=== PATIENT | female | born 1990 | race African-American/Black ===

== ENCOUNTER 2016-08-12 17:34 | Emergency (ER) | payer OTHER ==
--- NOTE | 2016-08-12 17:56 | UC ---
Complaint Female HPI - HPI Summary HPI Summary: "gush of fluid from her vagina today about 3pm today". No menses x 1.5 months. LNMP 06/02/16. Before 06/02/16 saw her PCP for irregular menses. Has done multiple home PG tests and they have all been neg. Pt , and had an ectopic pg Jun 2015, was given "two shots" and got blood drawn after. Has hx chlamydia and gonorrhea in the past. Pt is not using any control, no condoms. Has been with the same boyfriend since age 15. Has some RLQ abd pain, "5", that started after the fluid came out today. The fluid was clear, watery, that went into her pants, "felt like when her water broke". Did not see any tissue. Was watching TV when it happened. Last intercourse a few days ago. - History Of Current Complaint Chief Complaint: UCAbdominalPain Stated Complaint: PERSONAL Time Seen by Provider: 08/12/16 17:55 Hx Obtained From: Patient Hx Last Menstrual Period: 06/02/16 ?: No Onset/Duration: Sudden Onset, Lasting Hours, Still Present Timing: Constant Severity Initially: Moderate Severity Currently: Moderate Pain Intensity: 5 Pain Scale Used: 0-10 Numeric Character: Sharp - feels like her ectopic Aggravating Factor(s): Nothing Alleviating Factor(s): Nothing Associated Signs And Symptoms: Positive: Back Pain - always, Vaginal Bleeding/ Discharge - "spotting this am, but no more", Vaginal Discharge - clear, Nausea. Negative: Fever Related Hx: - 2, Para - 1, Ectopic - 1, Prior STD Hx - GC and chlamydia - Allergies/Home Medications Allergies/Adverse Reactions: Allergies Allergy/AdvReac Type Severity Reaction Status Date / Time Shellfish Allergy Allergy Severe Difficulty Verified 08/12/16 17:40 Breathing/Wheezing Latex Allergy Intermediate Itching Verified 08/12/16 17:40 Penicillins Allergy See Comment Verified 12/13/15 10:26 Home Medications: Home Medications NK [No Home Medications Reported] 08/12/16 [History Confirmed 08/12/16] PMH/Surg Hx/FS Hx/Imm Hx Previously Healthy: No - ectopic Endocrine History Of: Denies: Diabetes, Thyroid Disease, Hyperthyroidism, Hypothyroidism, Dyslipidemia Cardiovascular History Of: Denies: Cardiac Disorders, Hypertension, Pacemaker/ICD, Myocardial Infarction , Congestive Heart Failure, Atrial Fibrillation, Deep Vein Thrombosis, Bleeding Disorders Respiratory History Of: Reports: Asthma - as child Denies: COPD, Bronchitis, Pneumonia, Pulmonary Embolism GI/ History Of: Denies: Gastroesophageal Reflux, Ulcer, Gastrointestinal Bleed, Gall Bladder Disease, Kidney Stones, Diverticulitis, Renal Disease, Urosepsis Neurological History Of: Denies: TIA, CVA, Dementia, Seizures, Migraine Psychological History Of: Reports: Depression - She is not on medications for this. Denies: Anxiety, Bipolar Disorder, Schizophrenia, Post Traumatic Stress Disorder Cancer History Of: Denies: Lung Cancer, Colorectal Cancer, Breast Cancer, Prostate Cancer, Cervical Cancer Other History Of: Negative For: HIV, Hepatitis B, Hepatitis C - Surgical History Surgical History: Yes Surgery Procedure, Year, and Place: scoliosis related 11/06 - Family History Known Family History: Positive: Hypertension, Diabetes - Social History Occupation: Employed Part-time - small business representative Lives: With Family Alcohol Use: Occasionally Substance Use Type: None Smoking Status (MU): Never Smoked Tobacco Household Exposure Type: Cigarettes - Immunization History Most Recent Influenza Vaccination: none Review of Systems Constitutional: Negative Skin: Negative Respiratory: Negative Cardiovascular: Negative Gastrointestinal: Abdominal Pain - RLQ, Other - stool is green Genitourinary: Other - "gush" of clear fluid from vagina All Other Systems Reviewed And Are Negative: Yes Physical Exam Triage Information Reviewed: Yes Appearance: Well-Nourished, Ill-Appearing, Pain Distress Vital Signs: Initial Vital Signs Temp 98.1 F 08/12/16 17:43 Pulse 110 08/12/16 17:43 Resp 16 08/12/16 17:43 BP 145/82 08/12/16 17:43 Pulse Ox 100 08/12/16 17:43 tachycardia noted Vital Signs Reviewed: Yes Eyes: Positive: Conjunctiva Clear ENT: Positive: Normal ENT inspection Neck: Positive: Supple Respiratory: Positive: Lungs clear, Normal breath sounds, No respiratory distress Cardiovascular: Positive: RRR, No Murmur, Pulses Normal, Brisk Capillary Refill Abdomen Description: Positive: No Organomegaly, Soft, McBurney's Point Tenderness, Other: - tender RLQ. Negative: Distended, Guarding, Peritoneal Signs Bowel Sounds: Positive: Present Musculoskeletal: Positive: Strength Intact, ROM Intact Neurological: Positive: Alert, Muscle Tone Normal Psychological Exam: Normal Skin Exam: Normal Complaint Female Dx - Course Course Of Treatment: Pt with hx ectopic, "gush" of fluid and RLQ abd pain. HCG is neg here, but with RLQ pain will have pt go to [facility] for further eval. Pt agrees. Will go by private car. - Differential Dx/Diagnosis Differential Diagnosis/HQI/PQRI: Appendicitis, Ectopic, Sexually Transmitted Disease, Tubo-ovarian Abscess Provider Diagnoses: RLQ abd pain. vaginal discharge - Physician Notifications Discussed Patient Care With: Viri Pereira NP accepts pt. 18:45 Discharge - Discharge Plan Condition: Stable Disposition: AGAINST MEDICAL ADVICE Discharge Disposition Comment: private car to [facility]
[2016-08-12 18:51] VITALS: BP 145/86
== END 2016-08-12 18:50 | disposition left against medical advice (07) ==
LOC: UCCORT 17:34
DX: R10.31 Right lower quadrant pain (principal); N89.8 Other specified noninflammatory disorders of vagina; Z88.0 Allergy status to penicillin; Z77.22 Contact with and (suspected) exposure to environmental tobacco smoke (acute) (chronic)
CPT/HCPCS: 81003; 84702; 99213; G0463

== ENCOUNTER 2016-08-29 10:26 | Emergency (ER) | payer OTHER ==
[2016-08-29 11:49] VITALS: BP 136/82
--- NOTE | 2016-08-29 12:04 | UC ---
Complaint Female HPI - HPI Summary HPI Summary: 1. vaginal itchiness, redness, no discharge, hx of frequent yeast infection 2. heart burn x months, mild epigastric pain, reflux, no n/v , has been taking tumbs with no improvement - History Of Current Complaint Chief Complaint: UCGeneralIllness Stated Complaint: PERSONAL Time Seen by Provider: 08/29/16 11:50 Hx Obtained From: Patient Hx Last Menstrual Period: 07/31/16 Onset/Duration: Gradual Onset, Lasting Days - 4, Still Present Timing: Constant Severity Initially: Moderate Severity Currently: Moderate Character: Burning Aggravating Factor(s): Nothing Associated Signs And Symptoms: Negative: Fever, Back Pain, Vaginal Bleeding/ Discharge, Vaginal Discharge, Nausea, Vomiting(# Of Episodes =), Genital Swelling, Genital Blisters, Retained Foregin Body (Specify) - Allergies/Home Medications Allergies/Adverse Reactions: Allergies Allergy/AdvReac Type Severity Reaction Status Date / Time Shellfish Allergy Allergy Severe Difficulty Verified 08/29/16 11:49 Breathing/Wheezing Latex Allergy Intermediate Itching Verified 08/29/16 11:49 Penicillins Allergy See Comment Verified 08/29/16 11:49 PMH/Surg Hx/FS Hx/Imm Hx Endocrine History Of: Denies: Diabetes, Thyroid Disease, Hyperthyroidism, Hypothyroidism, Dyslipidemia Cardiovascular History Of: Denies: Cardiac Disorders, Hypertension, Pacemaker/ICD, Myocardial Infarction , Congestive Heart Failure, Atrial Fibrillation, Deep Vein Thrombosis, Bleeding Disorders Respiratory History Of: Reports: Asthma - as child Denies: COPD, Bronchitis, Pneumonia, Pulmonary Embolism GI/ History Of: Denies: Gastroesophageal Reflux, Ulcer, Gastrointestinal Bleed, Gall Bladder Disease, Kidney Stones, Diverticulitis, Renal Disease, Urosepsis Neurological History Of: Denies: TIA, CVA, Dementia, Seizures, Migraine Psychological History Of: Reports: Depression - She is not on medications for this. Denies: Anxiety, Bipolar Disorder, Schizophrenia, Post Traumatic Stress Disorder Cancer History Of: Denies: Lung Cancer, Colorectal Cancer, Breast Cancer, Prostate Cancer, Cervical Cancer Other History Of: Negative For: HIV, Hepatitis B, Hepatitis C - Surgical History Surgical History: Yes Surgery Procedure, Year, and Place: scoliosis related 11/06 - Family History Known Family History: Positive: None, Hypertension, Diabetes - Social History Alcohol Use: Occasionally Substance Use Type: None Smoking Status (MU): Never Smoked Tobacco Household Exposure Type: Cigarettes - Immunization History Most Recent Influenza Vaccination: none Review of Systems Constitutional: Negative Skin: Negative Eyes: Negative ENT: Negative Respiratory: Negative Cardiovascular: Negative Gastrointestinal: Other - GERD Genitourinary: Other - VAGINAL ITCH Motor: Negative All Other Systems Reviewed And Are Negative: Yes Physical Exam Triage Information Reviewed: Yes Appearance: Well-Appearing, No Pain Distress, Well-Nourished Vital Signs: Initial Vital Signs Temp 97.7 F 08/29/16 11:39 Pulse 81 08/29/16 11:39 Resp 14 08/29/16 11:39 BP 136/82 08/29/16 11:39 Pulse Ox 100 08/29/16 11:39 Vital Signs Reviewed: Yes Eye Exam: Normal Eyes: Positive: Conjunctiva Clear ENT: Positive: Normal ENT inspection, Hearing grossly normal, Pharynx normal Neck: Positive: Supple, Nontender, No Lymphadenopathy Respiratory: Positive: Chest non-tender, Lungs clear, Normal breath sounds Cardiovascular: Positive: RRR, No Murmur, Pulses Normal Abdominal Exam: Normal Abdomen Description: Positive: Nontender, Soft, Other: - VAGINAL EXAM WAS DEFFERED. Negative: CVA Tenderness (R), CVA Tenderness (L), Distended, Guarding Bowel Sounds: Positive: Present Skin Exam: Normal Complaint Female Dx - Differential Dx/Diagnosis Provider Diagnoses: YEAST VAGINITIS. GERD Discharge - Discharge Plan Condition: Stable Disposition: HOME Prescriptions: Fluconazole [Diflucan 150 MG (NF)] 150 mg PO ONCE #2 tab Omeprazole 40 mg PO DAILY #30 cap Patient Education Materials: Gastroesophageal Reflux in Children (ED), Vulvovaginal Candidiasis (ED) Referrals: Hawa Garcia MD [Primary Care Provider] - 7 Days
== END 2016-08-29 12:06 | disposition home or self-care (01) ==
LOC: UCCORT 10:26
DX: B37.3 Candidiasis of vulva and vagina (principal); K21.9 Gastro-esophageal reflux disease without esophagitis; Z88.0 Allergy status to penicillin; Z77.22 Contact with and (suspected) exposure to environmental tobacco smoke (acute) (chronic)
CPT/HCPCS: 99212; G0463

== ENCOUNTER 2016-10-02 09:17 | Emergency (ER) | payer OTHER ==
[2016-10-02 09:36] VITALS: BP 147/95
[2016-10-02] MEDS ORDERED: cefTRIAXone VIAL(*) 250 MG VIAL IM ONE (10:42)
[2016-10-02] MEDS ORDERED: Azithromycin TAB* 250 MG PO ONE (10:43)
--- NOTE | 2016-10-02 10:44 | UC ---
Complaint Female HPI - HPI Summary HPI Summary: 26 female presents with complaints of having white thick discharge without odor x1 day and then dryness over the past week. States she feels like something is wrong with genitalia but can't specify exact symptoms. Admits to STD history 2 months ago. Has numerous visits with complaints. Has had unprotected sex with new partner, within the last month unknown STD history. Is worried about STDs because of this and would like to be tested. Denies blood, fever/chills, abdominal pain and external genitalia symptoms. Difficult history due to changing stories and unknown specific timelines. LMP was September 13. Denies and urinary symptoms. - History Of Current Complaint Chief Complaint: UCGU Stated Complaint: PERSONAL Time Seen by Provider: 10/02/16 09:43 Hx Obtained From: Patient Hx Last Menstrual Period: 09/13/16 ?: No Onset/Duration: Sudden Onset, Lasting Weeks, Still Present Timing: Constant Severity Initially: Mild Severity Currently: Moderate Pain Intensity: 0 Pain Scale Used: 0-10 Numeric Character: Not Applicable Aggravating Factor(s): Nothing Alleviating Factor(s): Nothing Associated Signs And Symptoms: Positive: Vaginal Discharge. Negative: Nausea, Vomiting(# Of Episodes =), Genital Swelling, Genital Blisters Related Hx: - 2, Para - 1, Prior STD Hx - Risk Factors Ectopic Risk Factor: Negative - Allergies/Home Medications Allergies/Adverse Reactions: Allergies Allergy/AdvReac Type Severity Reaction Status Date / Time Shellfish Allergy Allergy Severe Difficulty Verified 08/29/16 11:49 Breathing/Wheezing Latex Allergy Intermediate Itching Verified 08/29/16 11:49 Penicillins AdvReac See Comment Verified 10/02/16 09:37 Home Medications: Home Medications Ferrous Fumarate [Iron] 18 mg PO DAILY 10/02/16 [History Confirmed 10/02/16] Performix 1 tab PO DAILY 10/02/16 [History] PMH/Surg Hx/FS Hx/Imm Hx Endocrine History Of: Denies: Diabetes, Thyroid Disease, Hyperthyroidism, Hypothyroidism, Dyslipidemia Cardiovascular History Of: Denies: Cardiac Disorders, Hypertension, Pacemaker/ICD, Myocardial Infarction , Congestive Heart Failure, Atrial Fibrillation, Deep Vein Thrombosis, Bleeding Disorders Respiratory History Of: Reports: Asthma - as child Denies: COPD, Bronchitis, Pneumonia, Pulmonary Embolism GI/ History Of: Denies: Gastroesophageal Reflux, Ulcer, Gastrointestinal Bleed, Gall Bladder Disease, Kidney Stones, Diverticulitis, Renal Disease, Urosepsis Neurological History Of: Denies: TIA, CVA, Dementia, Seizures, Migraine Psychological History Of: Reports: Depression - She is not on medications for this. Denies: Anxiety, Bipolar Disorder, Schizophrenia, Post Traumatic Stress Disorder Cancer History Of: Denies: Lung Cancer, Colorectal Cancer, Breast Cancer, Prostate Cancer, Cervical Cancer Other History Of: Negative For: HIV, Hepatitis B, Hepatitis C - Surgical History Surgical History: Yes Surgery Procedure, Year, and Place: scoliosis related 11/06 - Family History Known Family History: Positive: None, Hypertension, Diabetes - Social History Alcohol Use: Occasionally Substance Use Type: Marijuana Substance Use Comment - Amount & Last Used: occ. user, last time was last week Smoking Status (MU): Never Smoked Tobacco Household Exposure Type: Cigarettes - Immunization History Most Recent Influenza Vaccination: none Vaccination Up to Date: Yes Review of Systems Constitutional: Negative Skin: Negative Respiratory: Negative Cardiovascular: Negative Gastrointestinal: Negative Genitourinary: Other - vaginal discharge and dryness Musculoskeletal: Negative Psychological: Anxious All Other Systems Reviewed And Are Negative: Yes Physical Exam Triage Information Reviewed: Yes Appearance: Well-Appearing - appeared anxious when talking, got more comfortable as examination went on, No Pain Distress, Well-Nourished, Obese Vital Signs: Initial Vital Signs Temp 98.2 F 10/02/16 09:30 Pulse 90 10/02/16 09:30 Resp 14 10/02/16 09:30 BP 147/95 10/02/16 09:30 Pulse Ox 100 10/02/16 09:30 elevated BP noted, patient advised to follow up with primary care provider for re-check. patient was nervous Vital Signs Reviewed: Yes Eyes: Positive: Conjunctiva Clear ENT: Positive: Normal ENT inspection, Hearing grossly normal Neck: Positive: Supple, Nontender, No Lymphadenopathy Respiratory: Positive: Chest non-tender, Lungs clear, Normal breath sounds, No respiratory distress, No accessory muscle use Cardiovascular: Positive: RRR, No Murmur, Pulses Normal Abdomen Description: Positive: Nontender, No Organomegaly, Soft. Negative: Bruit, CVA Tenderness (R), CVA Tenderness (L), Distended, Guarding, Hernia @, McBurney's Point Tenderness, Peritoneal Signs, Pulsatile Mass Bowel Sounds: Positive: Present Musculoskeletal: Positive: Strength Intact, ROM Intact Neurological: Positive: Alert Skin Exam: Normal UC Physical Exam Vital Signs On Initial Exam: Initial Vitals Temp Pulse Resp BP Pulse Ox 98.2 F 90 14 147/95 100 10/02/16 09:30 10/02/16 09:30 10/02/16 09:30 10/02/16 09:30 10/02/16 09:30 - Genitalia Exam Female Genitourinary: Normal External Exam, Genitalia without Lesions/Masses, Cervix Discharge - yellow-white thick, purulent does not appear like anca, odor resembling perspiration, Other - cervix without cerivcal motion tenderes, no adnexa or uterus tenderness, no blood Complaint Female Dx - Course Course Of Treatment: pelvic exam preformed. STD, BV and anca cultures obtained. Due to HPI complaints, PE findings, positive STD hx and new sexual partner patient agreed to have STD treatment at this time. Flor and Celine. Will wait for culture results if treatment needs to be changed or added. Refrain from sexual activity. Patient thouroughly interviewed and educated on STDs and protection. Took a while to have patient feel comfortable to explain the reason she was here. Aware of worsening signs and symptoms to watch out for. Follow up and make appointment with OBGYN and PCP. - Differential Dx/Diagnosis Differential Diagnosis/HQI/PQRI: Pelvic Inflammatory Disease, , Sexually Transmitted Disease, Urinary Tract Infection, Other - BV, anca Provider Diagnoses: treatment STD, vaginal discharge - Physician Notifications Discussed Patient Care With: Dr Stevenson, agreed to treat patient for STDs at this time. Discharge - Discharge Plan Condition: Good Disposition: HOME Patient Education Materials: Sexually Transmitted Diseases (ED), Bacterial Vaginosis (ED) Referrals: Holly Delaney MD [Primary Care Provider] - Brook Garza MD [Medical Doctor] - Additional Instructions: You will hear test results once received via telephone. If additional treatment is needed it will be done at this time. If you develop any new or worsening symptoms please return. Follow up with OBGYN and call and make an appointment to become established. Drink plenty of fluids and maintain good hygiene. Refrain from sexual activity until symptoms have been treated and improved. Follow up with PCP is also recommended.
[2016-10-02] MEDS ORDERED: Lidocaine 1% MPF* 2 ML VIAL ONE (10:55)
--- NOTE | 2016-10-04 09:20 | UC ---
Progress - Progress Note Progress Note: Carli called in for anca.
== END 2016-10-02 11:11 | disposition home or self-care (01) ==
LOC: UCCORT 09:17
DX: B37.3 Candidiasis of vulva and vagina (principal); Z11.3 Encounter for screening for infections with a predominantly sexual mode of transmission; Z32.02 Encounter for pregnancy test, result negative; J45.909 Unspecified asthma, uncomplicated; F32.9 Major depressive disorder, single episode, unspecified; E66.9 Obesity, unspecified; Z88.0 Allergy status to penicillin; Z91.040 Latex allergy status; Z91.013 Allergy to seafood; F12.90 Cannabis use, unspecified, uncomplicated; Z77.22 Contact with and (suspected) exposure to environmental tobacco smoke (acute) (chronic)
CPT/HCPCS: 81003; 84702; 87086; 87480; 87491; 87510; 87591; 87661; 96372; 99212; A9270-GY; G0463; J0696

== ENCOUNTER 2016-12-30 16:45 | Emergency (ER) | payer OTHER ==
--- NOTE | 2016-12-30 17:06 | UC ---
Complaint Female HPI - HPI Summary HPI Summary: 26 y/o female presents to the urgent care c/o yellowish vaginal discharge for the past 2 weeks after her LMP 12/11/16. Pt reports she has HX of GC/Ch which was treated this year, she still with the same partner. She is using the Nuvaring. Pt frequency on urination w/ any burning. Pt denies pelvic pain, fever, back pain, N/V/D, SOB, chest pian. Pt has not other complains. - History Of Current Complaint Stated Complaint: PERSONAL Time Seen by Provider: 12/30/16 17:01 Hx Obtained From: Patient Hx Last Menstrual Period: 12/11/2016 ?: No Onset/Duration: Gradual Onset, Lasting Days, Still Present Timing: Constant Severity Initially: Mild Severity Currently: Moderate Pain Intensity: 0 Pain Scale Used: 0-10 Numeric Character: Not Applicable Aggravating Factor(s): Urination Associated Signs And Symptoms: Positive: Vaginal Discharge. Negative: Fever, Back Pain, Genital Swelling, Genital Blisters - Risk Factors Ectopic Risk Factor: Negative Ovarian Torsion Risk Factor: Negative - Allergies/Home Medications Allergies/Adverse Reactions: Allergies Allergy/AdvReac Type Severity Reaction Status Date / Time Shellfish Allergy Allergy Severe Difficulty Verified 12/30/16 17:13 Breathing/Wheezing Latex Allergy Intermediate Itching Verified 12/30/16 17:13 Penicillins AdvReac See Comment Verified 12/30/16 17:13 PMH/Surg Hx/FS Hx/Imm Hx Previously Healthy: Yes Respiratory History: Asthma GI/ History: Gastroesophageal Reflux Other History Of: Negative For: HIV, Hepatitis B, Hepatitis C - Surgical History Surgical History: Yes Surgery Procedure, Year, and Place: scoliosis related 11/06 - Family History Known Family History: Positive: None, Hypertension, Diabetes - Social History Occupation: Employed Full-time Lives: With Family Alcohol Use: Occasionally Substance Use Type: Marijuana Substance Use Comment - Amount & Last Used: occ. user, last time was last week Smoking Status (MU): Never Smoked Tobacco Household Exposure Type: Cigarettes - Immunization History Most Recent Influenza Vaccination: none Vaccination Up to Date: Yes Review of Systems Constitutional: Negative Skin: Negative Eyes: Negative ENT: Negative Respiratory: Negative Cardiovascular: Negative Gastrointestinal: Negative Genitourinary: Frequency, Other - yellowish vaginal discharge Motor: Negative Neurovascular: Negative Musculoskeletal: Negative Neurological: Negative Psychological: Negative All Other Systems Reviewed And Are Negative: Yes Physical Exam Triage Information Reviewed: Yes Appearance: Well-Appearing, No Pain Distress, Well-Nourished, Obese Vital Signs Reviewed: Yes Eye Exam: Normal Eyes: Positive: Conjunctiva Clear - PERRLA, EOMI, fundi grossly normal. ENT Exam: Normal ENT: Positive: Normal ENT inspection, Hearing grossly normal, Pharynx normal, TMs normal Dental Exam: Normal Neck exam: Normal Neck: Positive: Supple, Nontender, No Lymphadenopathy Respiratory Exam: Normal Respiratory: Positive: Chest non-tender, Lungs clear, Normal breath sounds, No respiratory distress Cardiovascular Exam: Normal Cardiovascular: Positive: RRR, No Murmur, Pulses Normal Abdominal Exam: Normal Abdomen Description: Positive: Nontender, No Organomegaly, Soft, Other: - Pelvic : I was assisted by Nurse Sherri. External genitalia within normal limits. There is no lesions there is no masses noted. Speculum exam: The vaginal dick are within normal limits w/ cottage cheese grayish vaginal discharge, no the lesions or rashes. The cervix is closed with mild erythema aoround 10 o'clock. No masses. There is no CMT's, and no adnexal masses. Sample sent Lab for G/C , trichomonas and affirm panel. Rectal: No lesions, no hemorrhoids observed.. Negative: CVA Tenderness (R), CVA Tenderness (L) Bowel Sounds: Positive: Present Musculoskeletal Exam: Normal Neurological Exam: Normal Psychological Exam: Normal Skin Exam: Normal Complaint Female Dx - Course Course Of Treatment: 26 y/o female presents to the urgent care c/o yellowish vaginal discharge for the past 2 weeks after her LMP 12/11/16. Pt reports she has HX of GC/Ch which was treated this year, she still with the same partner. She is using the Nuvaring. Pt frequency on urination w/ any burning. Pt denies pelvic pain, fever, back pain, N/V/D, SOB, chest pian. Hx obtained. PE abnormal findings:Pelvic: I was assisted by Nurse Polanco. External genitalia within normal limits. There is no lesions there is no masses noted. Speculum exam: The vaginal dick are within normal limits w/ cottage cheese grayish vaginal discharge, no the lesions or rashes. The cervix is closed with mild erythema aoround 10 o'clock. No masses. There is no CMT's, and no adnexal masses. Sample sent Lab for G/C, trichomonas and affirm panel. Rectal: No lesions, no hemorrhoids observed. Most likely a vulvovaginal candidiasis. However I will also treated for BV since pt reports a fishy odor at home. Pt strongly advised to f/u with [facility] since cervical os w/ erythematous lesion for a PAP. Pt Rx Fluconazol and Metronidazol vaginal applicator. BP: 149/83 elevated today and when compared w/ previous visit her BP has been elevated. Pt advised to decrease salt intake and monitor BP and f/u with PCP for further management. Pt undertood and agreed. - Differential Dx/Diagnosis Differential Diagnosis/HQI/PQRI: Cervicitis, Pelvic Inflammatory Disease, Sexually Transmitted Disease, Urinary Tract Infection Provider Diagnoses: 1- Bacterial Vaginosis. 2- Vulvovaginal candidiasis. 3- Elevated blood pressure w/ Hx or HTN Discharge - Discharge Plan Condition: Stable Disposition: HOME Prescriptions: Fluconazole 150 MG (NF) [Diflucan 150 mg (NF)] 150 mg PO ONCE #1 tab metroNIDAZOLE VAGINAL 0.75%* 1 applic VAGINAL BEDTIME #1 magy Patient Education Materials: Bacterial Vaginosis (ED), Vulvovaginal Candidiasis (ED), Low Sodium Diet (ED) Referrals: Holly Delaney MD [Primary Care Provider] - 1 Week Additional Instructions: 1-Please f/u with [facility] for a PAP as soon as possible. Please take medications as directed. Specimen were sent to lab, if anything abnormal you will receive a call from us for further treatment. 2- Your BP is elevated today, please monitor your blood pressure and decrease salt in your diet. F/u w/ your PCP for further evaluation and treatment in your BP.
[2016-12-30 17:13] VITALS: BP 149/83
== END 2016-12-30 17:57 | disposition home or self-care (01) ==
LOC: UCCORT 16:45
DX: N76.0 Acute vaginitis (principal); J45.909 Unspecified asthma, uncomplicated; K21.9 Gastro-esophageal reflux disease without esophagitis; F17.210 Nicotine dependence, cigarettes, uncomplicated; B37.3 Candidiasis of vulva and vagina; R03.0 Elevated blood-pressure reading, without diagnosis of hypertension; Z91.040 Latex allergy status; Z88.0 Allergy status to penicillin; Z91.013 Allergy to seafood
CPT/HCPCS: 81003; 87480; 87491; 87510; 87591; 87661; 99212; G0463

== ENCOUNTER 2017-06-28 12:42 | Emergency (ER) | payer OTHER | END 2017-06-28 16:42 | disposition left against medical advice (07) | LOC: UCCORT 12:42 | DX: R10.9 Unspecified abdominal pain (principal); Z53.21 Procedure and treatment not carried out due to patient leaving prior to being seen by health care provider ==

== ENCOUNTER 2017-06-29 08:36 | Emergency (ER) | payer OTHER ==
[2017-06-29 08:52] VITALS: BP 122/76
--- NOTE | 2017-06-29 10:19 | UC ---
Throat Pain/Nasal Mateo HPI - HPI Summary HPI Summary: Pt presents with c/o ST X 3 days. - History of Current Complaint Chief Complaint: UCGeneralIllness Stated Complaint: ST/DIZZY/ACHES Time Seen by Provider: 06/29/17 10:12 Hx Obtained From: Patient Hx Last Menstrual Period: 06/13/17 ?: No Onset/Duration: Sudden Onset Severity: Moderate Pain Intensity: 10 Cough: None Associated Signs & Symptoms: Positive: Dysphagia - Epiglottits Risk Factors Epiglottis Risk Factors: Sudden Onset - Allergies/Home Medications Allergies/Adverse Reactions: Allergies Allergy/AdvReac Type Severity Reaction Status Date / Time latex Allergy Itching Verified 06/29/17 08:46 shellfish derived Allergy Difficulty Verified 06/29/17 08:46 Breathing/Wheezing Penicillins AdvReac See Comment Verified 06/29/17 08:46 PMH/Surg Hx/FS Hx/Imm Hx Previously Healthy: Yes Other History Of: Negative For: HIV, Hepatitis B, Hepatitis C - Surgical History Surgical History: Yes Surgery Procedure, Year, and Place: scoliosis related 11/06 - Family History Known Family History: Positive: None, Hypertension, Diabetes - Social History Occupation: Employed Full-time Lives: With Family Alcohol Use: Rare Substance Use Type: None Substance Use Comment - Amount & Last Used: occ. user, last time was last week Smoking Status (MU): Never Smoked Tobacco Have You Smoked in the Last Year: No Household Exposure Type: Cigarettes - Immunization History Most Recent Influenza Vaccination: none Vaccination Up to Date: Yes Review of Systems Constitutional: Fever, Chills Skin: Negative Eyes: Negative ENT: Sore Throat Respiratory: Negative Cardiovascular: Negative Gastrointestinal: Negative Genitourinary: Negative Motor: Negative Neurovascular: Negative Musculoskeletal: Myalgia Neurological: Negative Psychological: Negative Is Patient Immunocompromised?: No All Other Systems Reviewed And Are Negative: Yes Physical Exam Triage Information Reviewed: Yes Appearance: Well-Appearing Vital Signs: Initial Vital Signs Temp 98.2 F 06/29/17 08:45 Pulse 94 06/29/17 08:45 Resp 16 06/29/17 08:45 BP 122/76 06/29/17 08:45 Pulse Ox 100 06/29/17 08:45 Vital Signs Reviewed: Yes Eye Exam: Normal ENT Exam: Other ENT: Positive: Tonsillar swelling, Other - tongue ring Dental Exam: Normal Neck exam: Other Neck: Positive: Tenderness @ - left cervical Respiratory Exam: Normal Cardiovascular Exam: Normal Musculoskeletal Exam: Normal Neurological Exam: Normal Psychological Exam: Normal Skin Exam: Normal Diagnostics - Laboratory Diagnostic Studies Completed/Ordered: Positive rapid strep Throat Pain/Nasal Course/Dx - Differential Dx/Diagnosis Differential Diagnosis/HQI/PQRI: Pharyngitis, Tonsillitis Provider Diagnoses: strep throat Discharge - Discharge Plan Condition: Stable Disposition: HOME Prescriptions: Azithromycin 500 mg PO DAILY #5 tab Patient Education Materials: Strep Throat (ED) Forms: *Work Release Referrals: [facility] [Outside] Non Staff,Doctor [Primary Care Provider] -
== END 2017-06-29 10:27 | disposition home or self-care (01) ==
LOC: UCCORT 08:36
DX: J02.0 Streptococcal pharyngitis (principal); Z77.22 Contact with and (suspected) exposure to environmental tobacco smoke (acute) (chronic)
CPT/HCPCS: 87651; 99212; G0463

== ENCOUNTER 2018-08-27 17:29 | Emergency (ER) | payer BC, MEDICAID, OTHER ==
[2018-08-27 17:53] VITALS: BP 145/87
--- NOTE | 2018-08-27 18:58 | UC ---
UC General HPI - HPI Summary HPI Summary: PT IS C/O A 2 WEEK HX OF WORSENING SINUS PAIN, CONGESTION AND GREEN DRAINAGE. ALSO C/O A SORE THROAT AND COUGH WHICH MAY BE POST NASAL DRIP RELATED. NO CP OR SOB. NO HX ASTHMA. - History of Current Complaint Chief Complaint: UCGeneralIllness Stated Complaint: ST,COUGH,CONGESTION Time Seen by Provider: 08/27/18 18:52 Hx Obtained From: Patient Hx Last Menstrual Period: 08/17/18 Onset/Duration: Gradual Onset Timing: Constant Pain Intensity: 3 - Allergy/Home Medications Allergies/Adverse Reactions: Allergies Allergy/AdvReac Type Severity Reaction Status Date / Time latex Allergy Itching Verified 08/27/18 17:53 shellfish derived Allergy Difficulty Verified 08/27/18 17:53 Breathing/Wheezing Penicillins AdvReac See Comment Verified 08/27/18 17:53 PMH/Surg Hx/FS Hx/Imm Hx Previously Healthy: Yes Other History Of: Negative For: HIV, Hepatitis B, Hepatitis C - Surgical History Surgical History: Yes Surgery Procedure, Year, and Place: scoliosis related 11/06 - Family History Known Family History: Positive: None, Hypertension, Diabetes - Social History Occupation: Employed Full-time Alcohol Use: Rare Substance Use Type: None Substance Use Comment - Amount & Last Used: occ. user, last time was last week Smoking Status (MU): Never Smoked Tobacco Have You Smoked in the Last Year: No Household Exposure Type: Cigarettes - Immunization History Most Recent Influenza Vaccination: none Vaccination Up to Date: Yes Review of Systems All Other Systems Reviewed And Are Negative: Yes ENT: Positive: Sore Throat, Nasal Discharge, Sinus Congestion, Sinus Pain/ Tenderness Respiratory: Positive: Cough Physical Exam Triage Information Reviewed: Yes Appearance: Well-Appearing Vital Signs: Initial Vital Signs Temp 99.1 F 08/27/18 17:48 Pulse 80 08/27/18 17:48 Resp 16 08/27/18 17:48 BP 145/87 08/27/18 17:48 Pulse Ox 100 08/27/18 17:48 Vital Signs Reviewed: Yes Eyes: Positive: Conjunctiva Clear ENT: Positive: Pharyngeal erythema - SLIGHT, Nasal congestion, TMs normal, Sinus tenderness, Uvula midline. Negative: Nasal drainage, Trismus, Muffled voice, Hoarse voice Neck: Positive: Supple, Nontender, No Lymphadenopathy Respiratory: Positive: Lungs clear, Normal breath sounds, No respiratory distress Cardiovascular: Positive: RRR, No Murmur Abdomen Description: Positive: Nontender, No Organomegaly, Soft Bowel Sounds: Positive: Present Musculoskeletal: Positive: ROM Intact Neurological: Positive: Alert Psychological: Positive: Age Appropriate Behavior Skin Exam: Normal Course/Dx - Course Course Of Treatment: DENIES HX HTN, BP ILLNESS/VISIT RELATED. - Diagnoses Provider Diagnosis: Sinusitis Discharge - Sign-Out/Discharge Documenting (check all that apply): Patient Departure All imaging exams completed and their final reports reviewed: No Studies - Discharge Plan Condition: Stable Disposition: HOME Prescriptions: Amoxicillin/Clavulanate TAB* [Augmentin TAB 875*] 875 mg PO BID 10 Days #20 tab Patient Education Materials: Sinusitis (ED) Forms: *Work Release Referrals: MILA Wheeler [Medical Doctor] - Additional Instructions: FOLLOW UP IF NOT BETTER IN 7 DAYS OR SOONER IF WORSE. - Billing Disposition and Condition Condition: STABLE Disposition: Home
== END 2018-08-27 19:17 | disposition home or self-care (01) ==
LOC: UCCORT 17:29
DX: J32.9 Chronic sinusitis, unspecified (principal); Z88.0 Allergy status to penicillin
CPT/HCPCS: 99212; G0463